=== PATIENT | male | born 1990 | race Hispanic/Latino ===

== ENCOUNTER 2018-08-13 07:58 | Outpatient (CLI) | payer OTHER | END 2018-08-13 07:59 | disposition home or self-care (01) | LOC: C.PAT 07:58 | DX: K40.90 Unilateral inguinal hernia, without obstruction or gangrene, not specified as recurrent (principal) ==

== ENCOUNTER 2018-08-16 07:55 | Day surgery (SDC) | payer OTHER ==
[2018-08-13 08:18] VITALS: BMI 22.9
[2018-08-16] MEDS ORDERED: ceFAZolin 1 gm FROZEN Premix 2 GM/100 ML ML IVPB ONE (09:12)
[2018-08-16] MEDS ORDERED: Bupivacaine 0.25% 20 ML INJ IJ ONE (09:12)
[2018-08-16] MEDS ORDERED: Lidocaine Hydrochloride 20 ML INJ ONE (09:13)
[2018-08-16] MEDS ORDERED: Midazolam 2 MG/2 ML VIAL ONE (09:43)
[2018-08-16] MEDS ORDERED: Propofol 10 mg/ml Inj (20 ML) ONE (09:43)
[2018-08-16] MEDS ORDERED: Bupivacaine Liposomal Inj 20 ml INJ ONE (11:54)
[2018-08-16] MEDS ORDERED: Sodium Chloride 0.9% 40 ML IV ONE (12:08)
[2018-08-16] MEDS ORDERED: Neostigmine Methylsulfate 3mg/3ml Syringe IV ONE (12:45)
[2018-08-16] MEDS ORDERED: Rocuronium 10 mg/ml (5 ml) ONE (12:45)
[2018-08-16] MEDS ORDERED: Lidocaine Hydrochloride 5 ML INJ ONE (12:45)
[2018-08-16] MEDS ORDERED: HYDROmorphone 0.5 mg/0.5 ml ISec IVP PRN (13:18)
[2018-08-16] MEDS ORDERED: Oxycodone/Acetaminophen 5/325 mg Tab PO PRN ×2 (13:21)
--- NOTE | 2018-08-16 13:30 | PCM.SURG1 ---
Surgeon's Initial Post Op Note - Surgeon's Notes Surgeon: Dr. Palm Kiln Labourer: Dr. Ch, Dr. Munoz Type of Anesthesia: General Endo, Block Regional Pre-Operative Diagnosis: Left inguinal hernia Operative Findings: see operative dictation Post-Operative Diagnosis: same Operation Performed: Robotic assisted left inguinal hernia repair with mesh Specimen/Specimens Removed: cord lipoma Estimated Blood Loss: EBL {In ML}: 10 Blood Products Given: N/A Drains Used: No Drains Post-Op Condition: Good Date of Surgery/Procedure: 08/16/18 Time of Surgery/Procedure: 13:30
[2018-08-16 13:48] VITALS: RESP 10
[2018-08-16 14:57] VITALS: PULSE 64; TEMP 98.2; O2SAT 100
[2018-08-16 15:09] VITALS: BP 116/59
--- NOTE | 2018-08-18 08:53 | OP ---
PROCEDURE DATE: 08/16/2018 PREOPERATIVE DIAGNOSIS: Right inguinal hernia. POSTOPERATIVE DIAGNOSIS: Right inguinal hernia. OPERATION PERFORMED: Robotic right inguinal herniorrhaphy with 3D mesh Bard. SURGEON: Ming Palm MD FLIGHT ENGINEER INSTRUCTOR: Harley Ch MD DESCRIPTION OF PROCEDURE: In the operating room, the patient was identified by name, procedure, and laterality by ruben. The patient was intubated and the area was prepped with chlorhexidine, waiting 3 minutes, it was then draped. The abdomen was entered through an open technique using the 8-mm trocars, it was placed in the umbilicus between ASIS and the ribs. On the left side, an 8-mm port was placed as a hand-assist. Looking around, there was nothing untoward. The trocars were then docked to the robot and the operation proceeded. Preoperative antibiotics were given. Looking around, we saw nothing untoward. The trocars were uninvolved, converting the visualization from a down-scope to an up-scope, a 30-degree scope, we found a tear in the serosa of the bowel and the pelvis, it was the only issue. This was closed in two layers using the V-Loc followed by interrupted silks. In the end, it was beautiful. Proceeding then to the operation, the left side was unremarkable. The liver was unremarkable. The gallbladder was unremarkable. There was nothing else untoward. Identifying the ASIS, the left hand incisor was then used to score and burn the peritoneum from the ASIS to the midline, having identified the bladder going above the what turned out to be an indirect hernia. The lateral dissection was done first, dissecting down to the muscle avoiding the nerves, sweeping it down the dissection was then brought more interiorly. The median umbilical ligament was identified and left intact. The medial ligament was divided. The lateral umbilical ligament containing the inferior epigastric was skeletonized, opened carefully avoiding the vessel. This peritoneum was then swept down laterally and then medially in the space of Retzius very nicely avoiding the danger triangle. The hernia sac was then swept down out of the sac by bimanual dissection using the fourth port through Bre, RUBENA. The hernia sac was then swept down and from the easily identified vas and the vessels. The hernia sac was then completely reduced and swept off the vas and the gonadal vessels. There was very little bleeding, cautery was used as necessary. The 3D mesh was rolled and placed into the pelvis very nicely. It was packed several times in the pubis, it laid flat. The peritoneum was then closed with a V-Loc. It had to be repaired in several places with a silk but in the end, it was a good closure. The small bowel was examined, there was nothing untoward running around and everything looked normal. CO2 was removed. The operation ended closing the holes with Vicryl on a stitch, subcuticular Vicryl, PDS, and Dermabond. The patient was taken to recovery room after a TAP block was done bilaterally using a total of 40 mL of 0.25 Exparel. Ming Palm MD
== END 2018-08-16 16:37 | disposition home or self-care (01) ==
LOC: C.SDS 07:55
PROVIDERS: ATTEND Surgery
DX: K40.90 Unilateral inguinal hernia, without obstruction or gangrene, not specified as recurrent (principal)
CPT/HCPCS: 49650; 88304; J0690; J1100; J1885; J2250; J2405; J2704; J2710; J3010